=== PATIENT | male | born 1945 | race Caucasian/White ===

== ENCOUNTER 2016-06-16 09:56 | Inpatient (IN) ==
[2016-06-16] MEDS ORDERED: Nitroglycerin 0.4 MG TAB.SUBL SL ONE (09:59)
[2016-06-16] MEDS ORDERED: Aspirin 81 MG TAB.CHEW PO ONE (09:59)
--- NOTE | 2016-06-16 10:10 | Emergency Department Note ---
Disposition Clinical Impression: Chest pain Qualifiers: Chest pain type: unspecified Qualified Code(s): R07.9 - Chest pain, unspecified LLL pneumonia Qualifiers: Pneumonia type: due to unspecified organism Qualified Code(s): J18.9 - Pneumonia, unspecified organism Disposition: Admitted As Inpatient Condition: Fair Time of Disposition: 11:55 Chest Pain HPI - General Chief Complaint: ED Chest Pain Stated Complaint: CP Source: patient Mode of arrival: ambulatory Limitations: no limitations Vital Signs Reviewed: Yes Nursing Notes Reviewed: Yes - History of Present Illness HPI Narrative: Patient is a 71-year-old male who presents to [facility] ED with a chief complaint of chest pressure. States his symptoms started 3 days ago and have been constant until approximately half an [facility]. States his pressure was relieved after approximately 5 minutes from the second dose of nitroglycerin He now rates it at a 1/10. Denies any nausea, vomiting, fever or chills. Patient does state he has had a cough with clear sputum for about the last month. Patient had issues with difficulty breathing a few weeks ago and they diagnosed with bronchitis and placed him on antibiotics. States the difference this time as the chest pressure. Past medical history significant for quadruple bypass surgery done 6 years ago at the [facility]. States he does follow with a OR physician but they just listened to his heart. States the last time he had any cardiac testing done was approximately 2 years ago when he had a knee surgery. Pt complaint: chest pain Onset (ago): day(s) Duration: constant Onset: during rest, during exertion Pain Location: substernal Severity: moderate Severity scale (1-10): 1 Quality: tightness, heaviness Pain Radiation: none Improves with: nitroglycerin Worsens with: nothing Context: recent illness Associated symptoms: Denies: nausea, vomiting, dyspnea Treatments prior to arrival chest pain: aspirin, nitroglycerin (x2) - Related Data Allergies Allergy/AdvReac Type Severity Reaction Status Date / Time atorvastatin [From Lipitor] Allergy Flushing Verified 06/16/16 10:30 bupropion Allergy Blurry Verified 06/16/16 10:30 Vision diphenhydramine Allergy Difficulty Verified 06/16/16 10:30 [From Benadryl] Breathing nifedipine Allergy Hives Verified 01/02/17 10:30 protamine Allergy Difficulty Verified 06/16/16 10:30 Breathing All systems ED: reviewed and negative except as stated. Chest Pain PMH - Social History Smoking Status: Current every day smoker Physical Exam - General Limitations: no limitations General appearance: alert, in no apparent distress - Head Head exam: atraumatic, normocephalic, normal inspection - Eye Eye exam: Present: normal appearance, PERRL, EOMI - ENT ENT exam: normal exam, normal oropharynx, mucous membranes moist - Neck Neck exam: Present: normal inspection, full ROM, trachea midline - Chest Chest inspection: Present: normal inspection, symmetric chest wall rise - Respiratory Respiratory exam: Present: wheezes (expiratory wheeze) - Cardiovascular Cardiovascular exam: Present: regular rate, normal rhythm, normal heart sounds - Abdominal Exam Abdominal exam: Present: soft, Non-Tender. Absent: tenderness, distention, guarding, rebound, rigidity - Extremities Exam Extremities exam: Present: normal inspection, full ROM, pedal edema (1+). Absent: tenderness - Back Exam Back exam: Present: normal inspection, full ROM. Absent: tenderness - Neurological Exam Neurological exam: Present: alert, oriented X3 - Psychiatric Psychiatric exam: Present: normal affect, normal mood - Skin Skin exam: Present: warm, dry, intact, normal color Course Course Narrative: Patient seen and examined. Chest pressure with history of quadruple bypass. No recent cardiac testing done. Cardiopulmonary workup initiated. trop at the OR was 0.02. We will give him another nitroglycerin if patient's chest pain returns. So far he has had 2 sublingual nitroglycerin as well as 1 full dose aspirin given at the OR. Will likely admit to hospitalist for r/o ACS - Reevaluation(s) Reevaluation #1: Lab work appears unremarkable. Troponin 0.03. Chest x-ray shows left lower lobe pneumonia. Will admit for chest pain, rule out ACS, left lower lobe pneumonia. We will go ahead and treat with one dose of IV Levaquin. Spoke with hospitalist Dr. Tristan who has accepted patient for admission. Time: 11:30 Vital Signs Temperature 98.0 F 06/16/16 09:59 Pulse Rate 78 06/16/16 09:59 Respiratory Rate 24 06/16/16 09:59 Blood Pressure 156/90 06/16/16 09:59 O2 Sat by Pulse Oximetry 98 06/16/16 09:59 Temperature 98.0 F 06/16/16 09:59 Pulse Rate 60 06/16/16 11:17 Respiratory Rate 22 06/16/16 11:17 Blood Pressure 143/75 06/16/16 11:17 O2 Sat by Pulse Oximetry 97 06/16/16 11:17 Oxygen Delivery Oxygen Delivery Room Air Chest Pain - Medical Records Medical records reviewed: Yes I reviewed the patient's medical records. - Lab Data Lab results reviewed: Yes I reviewed the patient's lab results. Result diagrams: 06/16/16 10:29 06/16/16 10:29 Lab Results 06/16/16 06/16/16 06/16/16 Range/Units 10:29 10:29 10:29 WBC 8.1 (4.3-11.1) K/mcL RBC 3.86 L (4.19-5.50) M/mcL Hgb 10.6 L (12.9-16.9) g/dL Hct 32.9 L (37.5-50.1) % MCV 85.2 (83.0-100.0) fL MCH 27.5 L (28.0-33.3) pg MCHC 32.2 (31.6-35.5) g/dL RDW 13.5 (11.5-14.5) % Plt Count 248 (140-400) K/mcL MPV 9.4 (9.4-12.4) fL Immature Gran % 0.5 (0-4) % Seg Neutrophils % 62.3 % Lymphocytes % 26.7 % Monocytes % 8.3 % Eosinophils % 1.7 % Basophils % 0.5 % Neutrophils # 5.0 (1.6-8.9) K/mcL Lymphocytes # 2.2 (0.6-4.6) K/mcL Monocytes # 0.7 (0.0-1.3) K/mcL Eosinophils # 0.1 (0.0-0.6) K/mcL Basophils # 0.0 (0.0-0.2) K/mcL Immature Plt Fraction 2.7 (1.1-6.1) % PT 11.6 (9.4-12.1) Seconds INR 1.1 APTT 29.5 (26.0-36.0) Seconds Sodium (136-145) mEq/L Potassium (3.5-4.5) mEq/L Chloride (98-109) mEq/L Carbon Dioxide (19-29) mEq/L BUN (8-26) mg/dL Creatinine (0.72-1.25) mg/dL Est GFR ( Amer) (> 60) Est GFR (Non-Af Amer) (> 60) BUN/Creatinine Ratio (6-26) Glucose (70-99) mg/dL Calculated Osmolality (280-300) Calcium (8.6-10.8) mg/dL Troponin I (0-0.03) ng/mL B-Natriuretic Peptide 316 H (0-100) pg/mL 06/16/16 06/16/16 Range/Units 10:29 10:29 WBC (4.3-11.1) K/mcL RBC (4.19-5.50) M/mcL Hgb (12.9-16.9) g/dL Hct (37.5-50.1) % MCV (83.0-100.0) fL MCH (28.0-33.3) pg MCHC (31.6-35.5) g/dL RDW (11.5-14.5) % Plt Count (140-400) K/mcL MPV (9.4-12.4) fL Immature Gran % (0-4) % Seg Neutrophils % % Lymphocytes % % Monocytes % % Eosinophils % % Basophils % % Neutrophils # (1.6-8.9) K/mcL Lymphocytes # (0.6-4.6) K/mcL Monocytes # (0.0-1.3) K/mcL Eosinophils # (0.0-0.6) K/mcL Basophils # (0.0-0.2) K/mcL Immature Plt Fraction (1.1-6.1) % PT (9.4-12.1) Seconds INR APTT (26.0-36.0) Seconds Sodium 139 (136-145) mEq/L Potassium 3.8 (3.5-4.5) mEq/L Chloride 109 (98-109) mEq/L Carbon Dioxide 22 (19-29) mEq/L BUN 26 (8-26) mg/dL Creatinine 1.36 H (0.72-1.25) mg/dL Est GFR ( Amer) > 60 (> 60) Est GFR (Non-Af Amer) 52 L (> 60) BUN/Creatinine Ratio 19 (6-26) Glucose 154 H (70-99) mg/dL Calculated Osmolality 296 (280-300) Calcium 8.6 (8.6-10.8) mg/dL Troponin I 0.03 (0-0.03) ng/mL B-Natriuretic Peptide (0-100) pg/mL - Radiology Data Radiology results reviewed: Yes I reviewed the patient's radiology results. - EKG Data EKG attestation: Yes I reviewed and interpreted this EKG. EKG results narrative: EKG done at 959 shows normal sinus rhythm with a rate of [address] elevation. There is some ST depression noted in V5 and V6 and lead II. P mitrale noted. Heart Score - Score History: Moderately Suspicious EKG: Non Specific repolarisation Disturbance Age: Greater than 65 Risk Factors: Equal/Greater than 3 risk factor or history of atherosclerotic disease Troponin: Less than normal limit HEART Score Total: 6 Critical Care Time Critical Care Time: Yes Total Critical Care Time: 35 Attestation: cc time managing chest pain and pneumonia. Attestation Statement - Attestation Attestation: Patient was seen with resident physician. I reviewed the history, physical, assessment and plan, and agree with the findings. I also personally evaluated this patient and had [id number] time with this patient. 71-year-old male who presents to the emergency department with chief complaint of chest pressure for the last 3 days. He says similar to his heart attack pain. He has a bypass surgery from 2010, most recently was worked up approximately 2 years ago. He stated he went to the OR earlier today his pain was improved with 2 nitros and a transfer him to [facility] for additional evaluation and treatment. Currently he rates his chest pain about 1 out of 10. He has had an aspirin several nitros. On exam HEENT is normal, heart and lungs are normal, abdomen is soft and nontender. Extremities no significant abnormalities. A workup for chest pain including a BMP and an additional troponin. His first with the OR was negative. EKG shows no acute changes at this time. We will admit patient for formal rule out and additional cardiac testing, as well as treatment for his pneumonia. Agree with resident physician assessment and plan.
[2016-06-16 10:36] LABS: Basophils % 0.5 %; Eosinophils # 0.1 K/mcL (0.0-0.6); Eosinophils % 1.7 %; Hematocrit 32.9 % (37.5-50.1); Hemoglobin 10.6 g/dL (12.9-16.9); Immature Granulocytes % 0.5 % (0-4); Immature Platelets 2.7 % (1.1-6.1); Lymphocytes # 2.2 K/mcL (0.6-4.6); Lymphocytes % 26.7 %; Mean Corpuscular HGB Conc 32.2 g/dL (31.6-35.5); Mean Corpuscular Hemoglobin 27.5 pg (28.0-33.3); Mean Corpuscular Volume 85.2 fL (83.0-100.0); Mean Platelet Volume 9.4 fL (9.4-12.4); Monocytes # 0.7 K/mcL (0.0-1.3); Monocytes % 8.3 %; Platelet Count 248 K/mcL (140-400); Red Blood Count 3.86 M/mcL (4.19-5.50); Red Cell Distribution Width 13.5 % (11.5-14.5); Segmented Neutrophils % 62.3 %
[2016-06-16 10:40] LABS: INR 1.1; Prothrombin Time 11.6 Seconds (9.4-12.1)
[2016-06-16 10:43] LABS: Activated Partial Thrombo Time 29.5 Seconds (26.0-36.0)
[2016-06-16 10:49] LABS: BUN/Creatinine Ratio 19 (6-26); Blood Urea Nitrogen 26 mg/dL (8-26); Calcium 8.6 mg/dL (8.6-10.8); Carbon Dioxide 22 mEq/L (19-29); Chloride 109 mEq/L (98-109); Glucose 154 mg/dL (70-99); Osmolality,Calculated 296 (280-300); Potassium 3.8 mEq/L (3.5-4.5); Sodium 139 mEq/L (136-145); eGFR For African Americans > 60 (> 60); eGFR For Non-African Americans 52 (> 60)
[2016-06-16] MEDS ORDERED: Levofloxacin 750 MG/150 ML 750 MG/150 ML BAG IVPB ONE (10:54)
--- NOTE | 2016-06-16 13:02 | Internal Med History&Physical ---
<Robyn Sahni - Last Filed: 06/16/16 14:25> Date of Encounter: 06/16/16 Time of Encounter: 12:30 Assessment and Plan (1) Chest pain Current visit: Yes Status: Acute - Most likely secondary pneumonia given it's constant and aggravated by cough. - Doubt LA given first troponin negative and no significant ischemic change on EKG. Continue to trend troponin q6H x2. - Other Ddx include esophageal spasm and Shingles but less likely. - Given patient's significant CAD history and multiple cardiac risk factors including DM, HTN & HLD, will obtain echocardiogram to rule out cardiac causes. - Telemetry monitoring. - Continue aspirin, beta martin, DELROY-I, statin, nitroglycerin prn. - Continue to monitor. Qualifiers: Chest pain type: unspecified Qualified Code(s): R07.9 - Chest pain, unspecified (2) LLL pneumonia Current visit: Yes Status: Acute - CXR suggests possible left lower lobe pneumonia, most likely community acquired pneumonia. - Will check respiratory infection panel, urine antigens for Legionella & Strept. pneumoniae. - Continue Levaquin. - Continue to monitor. Qualifiers: Pneumonia type: due to unspecified organism Qualified Code(s): J18.9 - Pneumonia, unspecified organism (3) CAD (coronary artery disease) Current visit: Yes Status: Chronic - CAD status post CABG 6 years ago at [facility]. - Continue aspirin, beta martin, DELROY-I, statin. Qualifiers: Coronary Disease-Associated Artery/Lesion type: [place] artery [place] vs. transplanted heart: [place] heart Associated angina: angina presence unspecified Qualified Code(s): I25.10 - Atherosclerotic heart disease of [place] coronary artery without angina pectoris (4) Diabetes mellitus Current visit: Yes Status: Chronic - Basal insulin basal and sliding scale. Qualifiers: Diabetes mellitus type: type 2 Diabetes mellitus complication status: without complication Diabetes mellitus prison insulin use: with long term care pharmacist use Qualified Code(s): E11.9 - Type 2 diabetes mellitus without complications ; Z79.4 - long term care pharmacist (current) use of insulin (5) Hypertension Current visit: Yes Status: Chronic - Continue home regimen of antihypertensive medications. Qualifiers: Hypertension type: essential hypertension Qualified Code(s): I10 - Essential (primary) hypertension (6) DVT prophylaxis Current visit: Yes Status: Acute - SQ heparin. Internal Medicine - H&P: HPI Chief complaint: Chest pain Admitted From: Emergency Dept (From [place]) Plans for Post Hospital Care: Home History of present illness: Mr. Pereyra is a 71 year old male with DM, HTN, HLD and CAD s/p CABG 6 years ago at [facility]. [place] here for chest pain. Patient reports having cold 4 weeks ago and not getting better despite patient got 10-day course of antibiotic. Patient has productive cough with white sputum but states his shortness of breath is chronic and no significant change. Patient started to have constant tightness across the chest since yesterday morning. Per patient, the pain is different from the heart attack in the past. It's aggravated by cough and alleviated by nitroglycerin given in ED. Exercise doesn't seem to make the pain worse. Patient denies fever, chills, nausea, vomiting, skin rash/itchiness, peripheral edema, significant weight change. Patient still smokes 2 cigarettes per day. Patient is not on any home oxygen or breathing treatment at home. Patient denies hospitalization or infusion in past three months. Past Med Surg Social Fam HX - Past Medical History Medical history: coronary artery disease, diabetes, hyperlipidemia, hypertension Psychiatric history: no psych history - Past Surgical History Surgical History: coronary bypass (CABG), vascular surgery (Left lower extremity ) - Social History Smoking Status: Current every day smoker (for more than 50 years) Smokeless Tobacco Status: No Alcohol use: none Drug use: none Internal Medicine - H&P: Meds Amlodipine Besylate 10 mg PO DAILY 06/16/16 [History] Aspirin 325 mg PO DAILY 06/16/16 [History] Benzocaine/Menthol [Sore Throat Lozenges] 1 each PO TID PRN 06/16/16 [History] CefTRIAXone [Rocephin] 1 gm IM AD PRN 06/16/16 [History] Cetirizine HCl [All Day Allergy] 10 mg PO DAILY 06/16/16 [History] Cholecalciferol (Vitamin D3) [Vitamin D3] 1,000 unit PO DAILY 06/16/16 [History] Dextrose [Glucose] 1 each PO DAILY PRN 06/16/16 [History] Doxycycline Monohydrate [Mondoxyne Nl] 100 mg PO BID 06/16/16 [History] Hydrochlorothiazide [Hydrochlorothiazide] 50 mg PO DAILY 06/16/16 [History] Insulin Aspart Prot/Insuln Asp [Novolog Mix 70-30 Vial] 36 unit SQ BID 06/16/16 [History] Lidocaine 1% [Xylocaine] 2 ml IM ONCE PRN 06/16/16 [History] Lisinopril [Lisinopril] 40 mg PO DAILY 06/16/16 [History] Metformin HCl [Metformin HCl] 500 mg PO BID 06/16/16 [History] Methylphenidate HCl [Methylphenidate ER] 18 mg PO DAILY 06/16/16 [History] Metoprolol [Lopressor] 100 mg PO BID 06/16/16 [History] Mupirocin [Bactroban Oint] 1 appl TP TID 06/16/16 [History] Nitroglycerin [Nitrostat] 0.4 mg SL Q5M PRN 06/16/16 [History] Pantoprazole Sodium [Protonix] 20 mg PO DAILY 06/16/16 [History] Propylene Glycol/Peg 400/Pf [Systane 0.3-0.4% Eye Drops] 1 drop BOTH EYES TID [History] Rosuvastatin Calcium [Rosuvastatin Calcium] 20 mg PO DAILY 06/16/16 [History] Allergies atorvastatin [From Lipitor] Allergy (Verified 06/16/16 13:54) Flushing bupropion Allergy (Verified 06/16/16 13:54) Blurry Vision diphenhydramine [From Benadryl] Allergy (Verified 06/16/16 13:54) Difficulty Breathing nifedipine Allergy (Verified 06/16/16 13:54) Hives protamine Allergy (Verified 06/16/16 13:54) Difficulty Breathing All Systems PM: A 10-system review of systems was performed and is negative for pertinent findings except as documented above in the HPI. - Constitutional Constitutional: no anorexia, no chills, no fever(s), no weight gain, no weight loss - EENT Eyes: no change in vision Ears: no decreased hearing Nose, mouth and throat: no dysphagia - Cardiovascular Cardiovascular ROS IM: as per HPI, chest pain, no edema, no palpitations, no syncope - Respiratory Respiratory: cough, dyspnea (Chronic), excessive phlegm production, change in phlegm color (White sputum) - Gastrointestinal Gastrointestinal: no abdominal pain, no diarrhea, no hematochezia, no melena, no nausea, no vomiting - Genitourinary Genitourinary ROS male: no difficulty urinating, no dysuria, no hematuria - Musculoskeletal Musculoskeletal ROS IM: no arthralgias, no myalgias - Integumentary Integumentary IM: no pruritus, no rash - Neurological Neurological ROS: no focal weakness, no numbness, no tingling - Hematologic/Lymphatic Hematologic/Lymphatic: no easy bleeding, no easy bruising - Constitutional Vitals: Temp Pulse Resp BP Pulse Ox 97.6 F 62 16 139/74 97 06/16/16 12:29 06/16/16 12:29 06/16/16 12:29 06/16/16 12:29 06/16/16 12:29 General appearance: Present: cooperative, A&O X 3, no acute distress, answers questions appropriately - Head Head exam: Present: atraumatic, normocephalic - Eye Eye exam: Present: PERRL, conjuntiva pink, sclera anicteric - Neck Neck exam general surgery: Present: supple, trachea midline. Absent: lymphadenopathy - Respiratory Respiratory exam: Present: rales (Bibasilar, R > L). Absent: accessory muscle use, chest wall tenderness, rhonchi, wheezes - Cardiovascular Cardiovascular exam: Present: RRR, +S1, +S2. Absent: diastolic murmur, gallop, rubs, systolic murmur - GI/Abdominal GI/Abdominal exam: Present: normal bowel sounds, soft, no peritoneal signs. Absent: distended, tenderness - Extremities Exam Extremities exam: Present: warm, radial pulses palpable and symetrical. Absent : calf tenderness, cyanotic, pedal edema - Neurological Exam Neurological exam: Present: CN II-XII intact, oriented X3, no focal deficits. Absent: pronater drift, facial droop, speech deficit - Skin Skin exam: Present: dry, intact, warm Internal Med - H&P Results - Labs CBC & Chem 7: 06/16/16 10:29 06/16/16 10:29 <Dar Tristan - Last Filed: 06/16/16 15:14> Date of Encounter: 06/16/16 Internal Medicine - H&P: HPI History of present illness: Mr. Pereyra is a 71 year old male Past Med Surg Social Fam HX - Family History Mother Hx Family Endocrine Disorder: Yes (DM) All Systems PM: A 10-system review of systems was performed and is negative for pertinent findings except as documented above in the HPI. - Constitutional Vitals: Temp Pulse Resp BP Pulse Ox 97.6 F 62 16 139/74 97 06/16/16 12:29 06/16/16 12:29 06/16/16 12:29 06/16/16 12:29 06/16/16 12:29 Internal Med - H&P Results - Labs CBC & Chem 7: 06/16/16 10:29 06/16/16 10:29 - Attending Attestation I have seen and examined this patient independently. I have discussed the case with the resident, Dr. Sunita Sahni. I agree with the data gathering in the HPI, physical examination findings, assessment and plan as documented by the resident. Briefly, chest pain in the setting of CAP in a patient with history of CAD. monitor trops and continue antibiotics. D/W patient.
[2016-06-16] MEDS ORDERED: Acetaminophen 325 MG TABLET PO PRN (13:35)
[2016-06-16] MEDS ORDERED: Nitroglycerin 0.4 MG TAB.SUBL SL PRN (14:14)
[2016-06-16] MEDS ORDERED: *HR* Dextrose 50 % in Water (Syg) 50 ML SYRINGE IVP PRN (14:26)
[2016-06-16] MEDS ORDERED: D5% in Water 1,000 ML IV PRN (14:26)
[2016-06-16] MEDS ORDERED: Dextrose Gel 15 GM PO PRN ×2 (14:26)
[2016-06-16] MEDS: Insulin LISPRO 300 UNITS/3 ML VIAL SQ SCH (18:09)
[2016-06-16] MEDS: *HR* Heparin 5,000 UNIT/ML VIAL SQ SCH ×2 (18:09→23:55)
[2016-06-16] MEDS: Insulin NPH/REG 70/30 100 UNIT/ML (x5UNIT) SQ SCH (20:53)
[2016-06-16] MEDS: Metoprolol 100 MG TABLET PO SCH (20:53)
[2016-06-16] MEDS ORDERED: Insulin LISPRO 300 UNITS/3 ML VIAL SQ SCH (21:00)
[2016-06-16 22:29] LABS: Adenovirus Not Detected (Not Detect); Bordetella Pertussis Not Detected (Not Detect); Chlamydophila pneumoniae Not Detected (Not Detect); Coronavirus 229E Not Detected (Not Detect); Coronavirus HKU1 Not Detected (Not Detect); Coronavirus NL63 Not Detected (Not Detect); Coronavirus OC43 Not Detected (Not Detect); Human Metapneumovirus Not Detected (Not Detect); Human Rhinovirus/Enterovirus Not Detected (Not Detect); Influenza A Subtype 2009 H1 Not Detected (Not Detect); Influenza A Untypeable Not Detected (Not Detect); Influenza B Not Detected (Not Detect); Mycoplasma pneumoniae Not Detected (Not Detect); Parainfluenza Virus 1 Not Detected (Not Detect); Parainfluenza Virus 2 Not Detected (Not Detect); Parainfluenza Virus 3 Not Detected (Not Detect); Parainfluenza Virus 4 Not Detected (Not Detect); Respiratory Syncytial Virus Not Detected (Not Detect)
[2016-06-17 05:02] LABS: Basophils # 0.1 K/mcL (0.0-0.2); Basophils % 0.7 %; Eosinophils # 0.3 K/mcL (0.0-0.6); Eosinophils % 3.6 %; Hematocrit 32.1 % (37.5-50.1); Hemoglobin 10.4 g/dL (12.9-16.9); Immature Granulocytes % 0.4 % (0-4); Lymphocytes # 2.4 K/mcL (0.6-4.6); Lymphocytes % 33.7 %; Mean Corpuscular HGB Conc 32.4 g/dL (31.6-35.5); Mean Corpuscular Hemoglobin 27.3 pg (28.0-33.3); Mean Corpuscular Volume 84.3 fL (83.0-100.0); Mean Platelet Volume 9.7 fL (9.4-12.4); Monocytes # 0.8 K/mcL (0.0-1.3); Monocytes % 10.7 %; Neutrophils # 3.6 K/mcL (1.6-8.9); Platelet Count 234 K/mcL (140-400); Red Blood Count 3.81 M/mcL (4.19-5.50); Red Cell Distribution Width 13.5 % (11.5-14.5); Segmented Neutrophils % 50.9 %
[2016-06-17 05:21] LABS: BUN/Creatinine Ratio 19 (6-26); Blood Urea Nitrogen 26 mg/dL (8-26); Calcium 8.9 mg/dL (8.6-10.8); Carbon Dioxide 22 mEq/L (19-29); Chloride 110 mEq/L (98-109); Glucose 54 mg/dL (70-99); Osmolality,Calculated 292 (280-300); Potassium 3.7 mEq/L (3.5-4.5); Sodium 140 mEq/L (136-145); eGFR For African Americans > 60 (> 60); eGFR For Non-African Americans 52 (> 60)
[2016-06-17 08:19] VITALS: BP 169/79
--- NOTE | 2016-06-17 08:19 | ECHO - Doppler Report ---
Echocardiogram Name: Delgado Pereyra Date of Study: 06/16/2016 Date: 1945 Ht: 69.0 in Medical Record#: [id number] Age: 71 Wt: 206.0 lb Gender: Male BSA: 2.09 Order #: [id number] Location: [facility] Room #: 3B24 Reading Physician: Kranthi Munroe MD, [facility] Corporate Concierge: Yesenia Brenner Ordering Physician: Robyn Sahni DO Primary Physician: [facility] Indications: Chest pain, Coronary artery disease, S/p CABG Impressions: Normal left ventricular size and systolic function, LVEF 60-65%. There is atypical septal motion consistent with prior cardiac surgery. Mild concentric left ventricular hypertrophy. Moderate left ventricular diastolic dysfunction. Normal right ventricular size and function. Severely dilated left atrium. Moderately dilated right atrium. Mild tricuspid regurgitation. Moderate pulmonary hypertension. Estimated RVSP = 50 mmHg. Left Ventricular Wall Motion: Rest Echo Findings All wall segments showed normal motion. Findings: Study Quality * Suboptimal echo windows. ECG Findings * Normal sinus rhythm. Left Ventricle * Normal left ventricular size and systolic function, LVEF 60-65%. There is atypical septal motion consistent with prior cardiac surgery. * Mild concentric left ventricular hypertrophy. * Moderate left ventricular diastolic dysfunction. Right Ventricle * Normal right ventricular size and function. Left Atrium * Severely dilated left atrium. Right Atrium * Moderately dilated right atrium. Aorta * Normally sized aortic root. Pericardium * There is no pericardial effusion present. IVC * Normal IVC dimensions and inspiratory collapse. Aortic Valve * Trileaflet aortic valve. * Moderately sclerotic aortic valve leaflets. * No aortic stenosis. * No aortic regurgitation. Mitral Valve * Moderate mitral annular calcification * No mitral stenosis. * Trace mitral regurgitation. Tricuspid Valve * Normal tricuspid valve structure. * No tricuspid stenosis. * Mild tricuspid regurgitation. * Moderate pulmonary hypertension. Estimated RVSP = 50 mmHg. Pulmonic Valve * Pulmonic valve not well visualized. * No pulmonic stenosis. * No pulmonic regurgitation. History Hypertension Diabetes Hypercholesteremia History of CAD/PTCA Myocardial Infarction Coronary Artery Bypass Graft Measurements: BP: 138/ 75 2D Normal Values RVIDd: 3.50 cm IVSd: 1.20 cm 0.6 - 1.0 cm LVIDd: 5.60 cm 3.7 - 5.6 cm LVPWd: 1.30 cm 0.6 - 1.1 cm LVIDs: 3.40 cm 1.5 - 3.6 cm AO: 3.00 cm < 4.0 cm LA volume: 95 Mitral Valve Peak E:1.17 m/sec Peak A:1.18 m/sec E/A Ratio:1 Peak E' Lat Omar:6.24 cm/s Peak E' Med Omar:5.75 cm/s E/E' Lat Ratio:18.8 E/E' Med Ratio:20.3 Tricuspid Valve TV Regurg Peak Grad: 47.00mmHg TV Regurg Peak Omar: 3.40m/sec Updated by Kranthi Munroe MD, [facility] on 06/17/2016 8:13:47 AM electronically signed on 06/17/2016 8:14:56 AM with status of Final [place] Motion [place]: 1=Normal, 2=Hypokinesis, 3=Akinesis, 4=Dyskinesis, 5=Aneurysmal, 6=Hyperkinetic, X=Not Visualized (Blank)=Missing
[2016-06-17] MEDS: Insulin LISPRO 300 UNITS/3 ML VIAL SQ SCH (08:48)
[2016-06-17] MEDS: *HR* Heparin 5,000 UNIT/ML VIAL SQ SCH (08:49)
[2016-06-17] MEDS: Insulin NPH/REG 70/30 100 UNIT/ML (x5UNIT) SQ SCH (08:51)
[2016-06-17] MEDS: Metoprolol 100 MG TABLET PO SCH (08:51)
[2016-06-17] MEDS ORDERED: Aspirin 325 MG TABLET PO SCH (09:00)
[2016-06-17] MEDS ORDERED: Levofloxacin 750 MG/150 ML 750 MG/150 ML BAG IVPB SCH (09:00)
[2016-06-17] MEDS ORDERED: amLODIPine 5 MG TABLET PO SCH (09:00)
[2016-06-17] MEDS ORDERED: hydroCHLOROthiazide 25 MG TABLET PO SCH (09:00)
[2016-06-17] MEDS ORDERED: Lisinopril 20 MG TABLET PO SCH (09:00)
--- NOTE | 2016-06-17 09:57 | Electrocardiograph Report ---
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
--- NOTE | 2016-06-17 11:10 | Discharge Summary ---
<Kacie Acosta Suzi - Last Filed: 06/17/16 13:42> Date of Encounter: 06/17/16 Time of Encounter: 08:30 - Discharge Diagnosis (1) LLL pneumonia Priority: Primary Status: Acute Qualifiers: Pneumonia type: due to unspecified organism Qualified Code(s): J18.9 - Pneumonia, unspecified organism (2) Chest pain Priority: Secondary Status: Acute Qualifiers: Chest pain type: unspecified Qualified Code(s): R07.9 - Chest pain, unspecified (3) CAD (coronary artery disease) Priority: Secondary Status: Chronic Qualifiers: Coronary Disease-Associated Artery/Lesion type: [place] artery [place] vs. transplanted heart: [place] heart Associated angina: angina presence unspecified Qualified Code(s): I25.10 - Atherosclerotic heart disease of [place] coronary artery without angina pectoris (4) Diabetes mellitus Priority: Secondary Status: Chronic Qualifiers: Diabetes mellitus type: type 2 Diabetes mellitus complication status: without complication Diabetes mellitus termite technician insulin use: with mcfp use Qualified Code(s): E11.9 - Type 2 diabetes mellitus without complications ; Z79.4 - termite technician (current) use of insulin (5) Hypertension Priority: Secondary Status: Chronic Qualifiers: Hypertension type: essential hypertension Qualified Code(s): I10 - Essential (primary) hypertension - Discharge Medications Prescriptions: Benzonatate [Tessalon] 100 mg PO TID PRN #12 capsule PRN Reason: Cough Levofloxacin [Levaquin] 750 mg PO Q24H #5 tablet Home Medications: Amlodipine Besylate 10 mg PO DAILY 06/16/16 [History] Aspirin 325 mg PO DAILY 06/16/16 [History] Benzocaine/Menthol [Sore Throat Lozenges] 1 each PO TID PRN 06/16/16 [History] CefTRIAXone [Rocephin] 1 gm IM AD PRN 06/16/16 [History] Cetirizine HCl [All Day Allergy] 10 mg PO DAILY 06/16/16 [History] Cholecalciferol (Vitamin D3) [Vitamin D3] 1,000 unit PO DAILY 06/16/16 [History] Dextrose [Glucose] 1 each PO DAILY PRN 06/16/16 [History] Hydrochlorothiazide 50 mg PO DAILY 06/16/16 [History] Insulin Aspart Prot/Insuln Asp [Novolog Mix 70-30 Vial] 36 unit SQ BID 06/16/16 [History] Lidocaine 1% [Xylocaine] 2 ml IM ONCE PRN 06/16/16 [History] Lisinopril 40 mg PO DAILY 06/16/16 [History] Metformin HCl 500 mg PO BID 06/16/16 [History] Methylphenidate HCl [Methylphenidate ER] 18 mg PO DAILY 06/16/16 [History] Metoprolol [Lopressor] 100 mg PO BID 06/16/16 [History] Mupirocin [Bactroban Oint] 1 appl TP TID 06/16/16 [History] Nitroglycerin [Nitrostat] 0.4 mg SL Q5M PRN 06/16/16 [History] Pantoprazole Sodium [Protonix] 20 mg PO DAILY 06/16/16 [History] Propylene Glycol/Peg 400/Pf [Systane 0.3-0.4% Eye Drops] 1 drop BOTH EYES TID [History] Rosuvastatin Calcium 20 mg PO DAILY 06/16/16 [History] Benzonatate [Tessalon] 100 mg PO TID PRN #12 capsule 06/17/16 [Rx] Levofloxacin [Levaquin] 750 mg PO Q24H #5 tablet 06/17/16 [Rx] Allergies/Adverse Reactions: Allergies atorvastatin [From Lipitor] Allergy (Verified 06/16/16 13:54) Flushing bupropion Allergy (Verified 06/16/16 13:54) Blurry Vision diphenhydramine [From Benadryl] Allergy (Verified 06/16/16 13:54) Difficulty Breathing nifedipine Allergy (Verified 06/16/16 13:54) Hives protamine Allergy (Verified 06/16/16 13:54) Difficulty Breathing Procedures/tests Complete & Pending: Procedures Performed prior 72 hours Category Date Time Status EV echocardiogram Routine Y 06/16/16 13:57 Completed Date of admission: 06/16/16 11:27 [facility] care [facility]: [facility] - Patient Status Disposition: Home, Self-Care Condition: Good Functional capacity at discharge: independent ambulation Overall status at discharge: patient is progressing back to baseline - Discharge Instructions Instructions: Benzonatate (By mouth), Levofloxacin (By mouth), Chest Pain (DC) , Community-acquired Pneumonia (GEN) Follow Up With: Unassigned,Provider [Non-Partnered Physician] - Additional Instructions: Follow-up with PCP in one week. - Diet and Activity Activity: increase activity as tolerated Diet: diabetic diet Hospital course: Mr. Pereyra is a 71 year old male who presented with chest pain. He admitted to having could for 4 weeks prior to coming the [facility]. He reported that symptoms had not improved despite having a 10 day course of antibiotics. Upon arrival he had cough productive of white sputum and shortness of breath which he reports is chronic. Imaging demonstrated LLL infiltrate and pt subsequently received 2 doses of IV Levaquin. This morning he is feeling better, cough has improved although not completely resolved, and physical exam reveals clear lung sounds bilaterally. Pt denies any chest pain, worsening shortness of breath, fever, chills, nausea or vomiting. Will discharge with cough suppressant as well as po Levaquin. Follow-up with PCP in one week. - Time Spent with Patient Total time spent providing and/or coordinating discharge services: Less than 30 minutes - Constitutional Vitals: Temp Pulse Resp BP Pulse Ox 97.5 F L 65 16 169/79 96 06/17/16 08:18 06/17/16 08:18 06/17/16 08:18 06/17/16 08:18 06/17/16 08:18 General appearance: Present: cooperative, A&O X 3, no acute distress, answers questions appropriately - Head Head exam: Present: atraumatic, normocephalic - Eye Eye exam: Present: PERRL, conjuntiva pink, sclera anicteric - ENT ENT exam: Present: mucous membranes moist - Neck Neck exam general surgery: Present: supple, trachea midline - Respiratory Respiratory exam: Present: CTAB. Absent: rales, rhonchi, wheezes - Cardiovascular Cardiovascular exam: Present: RRR, +S1, +S2 - GI/Abdominal GI/Abdominal exam: Present: normal bowel sounds, soft. Absent: rebound, rigid, tenderness - Extremities Exam Extremities exam: Present: warm, radial pulses palpable and symetrical. Absent : cyanotic, pedal edema - Neurological Exam Neurological exam: Present: alert, CN II-XII intact, oriented X3, no focal deficits - Skin Skin exam: Present: dry, intact <Dar Tristan - Last Filed: 06/17/16 18:04> Date of Encounter: 06/17/16 Procedures/tests Complete & Pending: Procedures Performed prior 72 hours Category Date Time Status EV echocardiogram Routine Y 06/16/16 13:57 Completed Date of admission: 06/16/16 11:27 [facility] care physician: [facility] Consults: 06/17/16 11:13 Consult to Parachute Rigger [CONS] Routine Reason for SW Consult: [facility] Hospital course: Mr. Pereyra is a 71 year old male - Time Spent with Patient Total time spent providing and/or coordinating discharge services: - Constitutional Vitals: Temp Pulse Resp BP Pulse Ox 97.5 F L 65 16 169/79 96 06/17/16 08:18 06/17/16 08:18 06/17/16 08:18 06/17/16 08:18 06/17/16 08:18 - Attending Attestation The patient was seen and examined with the resident during rounds. I agree with the physical examination findings, assessment and plan as documented by the resident, Dr. Acosta. Patient with CAP and chest pain. Discharge home on po levaquin.
== END 2016-06-17 12:15 | disposition home or self-care (01) | DRG 195 ==
LOC: EDBD → EMEROO 09:56 → SUATTDRO 11:27 → 3BNU 11:27
PROVIDERS: ADMIT Internal Medicine; ATTEND Internal Medicine

== ENCOUNTER 2016-11-13 10:58 | Observation (INO) ==
--- NOTE | 2016-11-13 11:19 | Emergency Department Note ---
Disposition Clinical Impression: Pleural effusion, Elevated blood pressure reading, Anemia Chest pain Qualifiers: Chest pain type: unspecified Qualified Code(s): R07.9 - Chest pain, unspecified Pulmonary edema Qualifiers: Chronicity: acute Qualified Code(s): J81.0 - Acute pulmonary edema CHF (congestive heart failure) Qualifiers: Congestive heart failure type: unspecified congestive heart failure type Congestive heart failure chronicity: unspecified congestive heart failure chronicity Qualified Code(s): I50.9 - Heart failure, unspecified Disposition: Admitted As Inpatient Condition: Fair Chest Pain HPI - General Chief Complaint: ED Chest Pain Stated Complaint: CP x 3 days Time Seen by Provider: 11/13/16 11:01 Source: patient Mode of arrival: ambulatory Limitations: no limitations Vital Signs Reviewed: Yes Nursing Notes Reviewed: Yes - History of Present Illness HPI Narrative: 71-year-old male with a history of bypass or 8 years ago, COPD, hypertension hyperlipidemia, presents for evaluation of chest pain. Patient was seen initially in the cardiology office in was instructed to go to the ER for evaluation. Patient states he has had constant chest pain for the past 3 days. Noted be left-sided. No radiation. Does have a cough with white frothy sputum and shortness of breath. Current smoker. States he thought he had bronchitis. Patient states that he does use his albuterol inhaler which helps with the cough. Patient denies any nausea or vomiting. Denies any fevers. No aggravating or alleviating symptoms noted with the chest pain. Severity scale (1-10): 2 Pain Radiation: none Improves with: nothing Worsens with: nothing - Related Data Home Medications Medication Instructions Recorded Confirmed Amlodipine Besylate 10 mg PO DAILY 06/16/16 11/13/16 Aspirin 325 mg PO DAILY 06/16/16 11/13/16 Benzocaine/Menthol [Sore Throat 1 lozenge PO TID PRN 06/16/16 11/13/16 Lozenges] Cetirizine HCl [All Day Allergy] 10 mg PO DAILY 06/16/16 11/13/16 Cholecalciferol (Vitamin D3) 1,000 unit PO DAILY 06/16/16 11/13/16 [Vitamin D3] Dextrose [Glucose] 1 tab PO DAILY PRN 06/16/16 11/13/16 Insulin Aspart Prot/Insuln Asp 36 unit SQ BID 06/16/16 11/13/16 [Novolog Mix 70-30 Vial] Lisinopril 40 mg PO DAILY 06/16/16 11/13/16 Metformin HCl 500 mg PO BID 06/16/16 11/13/16 Mupirocin [Bactroban Oint] 1 appl TP TID 06/16/16 11/13/16 Nitroglycerin [Nitrostat] 0.4 mg SL Q5M PRN 06/16/16 11/13/16 Pantoprazole Sodium [Protonix] 20 mg PO DAILY 06/16/16 11/13/16 Propylene Glycol/Peg 400/Pf 1 drop BOTH EYES TID 06/16/16 11/13/16 [Systane 0.3-0.4% Eye Drops] Rosuvastatin Calcium 20 mg PO DAILY 06/16/16 11/13/16 Albuterol Sulfate [Proair Hfa] 2 puff IH Q6H PRN 11/13/16 11/13/16 Ipratropium/Albuterol Neb [Duoneb] 3 ml IH Q4HR PRN 11/13/16 11/13/16 Metoprolol Succinate 100 mg PO BID 11/13/16 11/13/16 Ropinirole HCl [Requip] 0.25 mg PO HS 11/13/16 11/13/16 Allergies Allergy/AdvReac Type Severity Reaction Status Date / Time atorvastatin [From Lipitor] Allergy Flushing Verified 06/16/16 13:54 bupropion Allergy Blurry Verified 06/16/16 13:54 Vision diphenhydramine Allergy Difficulty Verified 06/16/16 13:54 [From Benadryl] Breathing nifedipine Allergy Hives Verified 06/16/16 13:54 protamine Allergy Difficulty Verified 06/16/16 13:54 Breathing simvastatin Allergy Flushing Verified 11/13/16 11:08 All systems ED: reviewed and negative except as stated. Constitutional: Reports: as per HPI. Denies: fever Eyes: Reports: as per HPI ENT ED: Reports: as per HPI Cardiovascular: Reports: as per HPI, chest pain Respiratory: Reports: as per HPI, cough, dyspnea Gastrointestinal: Reports: as per HPI. Denies: nausea, vomiting Genitourinary: Reports: as per HPI Musculoskeletal: Reports: as per HPI Integumentary: Reports: as per HPI Neurological: Reports: as per HPI Psychiatric: Reports: as per HPI Endocrine: Reports: as per HPI Chest Pain PMH - Past Medical History Medical history: Reports: coronary artery disease, diabetes, hyperlipidemia, hypertension Surgical history: Reports: coronary bypass (CABG), vascular surgery (Left lower extremity) Psychiatric history: Reports: no psych history - Social History Smoking Status: Current every day smoker Alcohol use: Reports: none Drug use: Reports: none Physical Exam - General Limitations: no limitations General appearance: alert, in no apparent distress - Head Head exam: atraumatic, normocephalic, normal inspection - Eye Eye exam: Present: normal appearance, EOMI - ENT ENT exam: normal exam, mucous membranes moist - Neck Neck exam: Present: normal inspection, trachea midline - Chest Chest inspection: Present: normal inspection, symmetric chest wall rise, tenderness (Left-sided anterior chest wall) - Respiratory Respiratory exam: Present: normal lung sounds bilaterally, accessory muscle use , other (mild conversational dyspnea) - Cardiovascular Cardiovascular exam: Present: regular rate, normal rhythm. Absent: systolic murmur - Abdominal Exam Abdominal exam: Present: soft, Non-Tender - Extremities Exam Extremities exam: Present: normal inspection, pedal edema (trace) - Back Exam Back exam: Present: normal inspection. Absent: CVA tenderness (R), CVA tenderness (L) - Neurological Exam Neurological exam: Present: alert, oriented X3 - Skin Skin exam: Present: warm, dry, intact, normal color Course Course Narrative: Patient seen and examined. Patient appears to be in no acute distress. Patient will get a cardiopulmonary evaluation. Breathing treatment With bronchospasm. Nitroglycerin for chest pain. Disposition pending. Patient's history was reviewed. Patient had echo obtained in June this present year and had EF of 60-65%. - Reevaluation(s) Reevaluation #1: No change in the patients condition. Patient's chest x-ray reviewed shows new bilateral pleural opacities with likely effusion. Radiology interpretation of effusion versus multifocal pneumonia. Patient clinically does not appear infectious less likely versus multifocal pneumonia. Patient appears to have acute pulmonary edema. Time: 11:54 Reevaluation #2: Patient seen and examined. No acute distress. Updated on plan of care. Time: 13:05 Vital Signs Temperature 97.7 F 11/13/16 11:01 Pulse Rate 77 11/13/16 11:01 Respiratory Rate 20 11/13/16 11:01 Blood Pressure 187/85 11/13/16 11:01 O2 Sat by Pulse Oximetry 97 11/13/16 11:01 Temperature 97.7 F 11/13/16 13:46 Pulse Rate 72 11/13/16 13:46 Respiratory Rate 16 11/13/16 13:46 Blood Pressure 160/74 11/13/16 13:46 O2 Sat by Pulse Oximetry 96 11/13/16 13:46 Oxygen Delivery Oxygen Delivery Room Air Chest Pain - MDM Narrative Medical decision making narrative: 71-year-old male presents for evaluation of chest pain for the past 3 days. Patient had a cardiopulmonary evaluation which is significant for acute pulmonary edema. Patient's BNP also elevated consistent with heart failure. Patient had an echo performed beginning of the year which showed EF of 66 5%. Patient was treated with nitroglycerin as well as Lasix. Patient was also given a DuoNeb. Patient's troponin was negative with no acute changes in EKG. Patient will be admitted to the hospital service for further evaluation and monitoring. Patient will likely need a stress test and echo. Patient is agreeable to plan of care. Patient does appear to be anemic but is chronic. Patient was observed in the emergency department without any signs of distress. - Lab Data Lab results reviewed: Yes I reviewed the patient's lab results. Result diagrams: 11/13/16 11:44 11/13/16 11:44 Lab Results 11/13/16 11/13/16 11/13/16 Range/Units 11:44 11:44 11:44 WBC 7.3 (4.3-11.1) K/mcL RBC 3.87 L (4.19-5.50) M/mcL Hgb 10.1 L (12.9-16.9) g/dL Hct 31.5 L (37.5-50.1) % MCV 81.4 L (83.0-100.0) fL MCH 26.1 L (28.0-33.3) pg MCHC 32.1 (31.6-35.5) g/dL RDW 15.4 H (11.5-14.5) % Plt Count 253 (140-400) K/mcL MPV 8.7 L (9.4-12.4) fL Immature Gran % 0.3 (0-4) % Seg Neutrophils % 60.3 % Lymphocytes % 26.0 % Monocytes % 9.6 % Eosinophils % 3.4 % Basophils % 0.4 % Neutrophils # 4.4 (1.6-8.9) K/mcL Lymphocytes # 1.9 (0.6-4.6) K/mcL Monocytes # 0.7 (0.0-1.3) K/mcL Eosinophils # 0.3 (0.0-0.6) K/mcL Basophils # 0.0 (0.0-0.2) K/mcL Sodium 140 (136-145) mEq/L Potassium 3.6 (3.5-4.5) mEq/L Chloride 111 H (98-109) mEq/L Carbon Dioxide 23 (19-29) mEq/L BUN 18 (8-26) mg/dL Creatinine 1.24 (0.72-1.25) mg/dL Est GFR ( Amer) > 60 (> 60) Est GFR (Non-Af Amer) 57 L (> 60) BUN/Creatinine Ratio 15 (6-26) Glucose 57 L (70-99) mg/dL Calculated Osmolality 290 (280-300) Calcium 8.7 (8.6-10.8) mg/dL Troponin I (0-0.03) ng/mL B-Natriuretic Peptide 653 H (0-100) pg/mL 11/13/16 Range/Units 11:44 WBC (4.3-11.1) K/mcL RBC (4.19-5.50) M/mcL Hgb (12.9-16.9) g/dL Hct (37.5-50.1) % MCV (83.0-100.0) fL MCH (28.0-33.3) pg MCHC (31.6-35.5) g/dL RDW (11.5-14.5) % Plt Count (140-400) K/mcL MPV (9.4-12.4) fL Immature Gran % (0-4) % Seg Neutrophils % % Lymphocytes % % Monocytes % % Eosinophils % % Basophils % % Neutrophils # (1.6-8.9) K/mcL Lymphocytes # (0.6-4.6) K/mcL Monocytes # (0.0-1.3) K/mcL Eosinophils # (0.0-0.6) K/mcL Basophils # (0.0-0.2) K/mcL Sodium (136-145) mEq/L Potassium (3.5-4.5) mEq/L Chloride (98-109) mEq/L Carbon Dioxide (19-29) mEq/L BUN (8-26) mg/dL Creatinine (0.72-1.25) mg/dL Est GFR ( Amer) (> 60) Est GFR (Non-Af Amer) (> 60) BUN/Creatinine Ratio (6-26) Glucose (70-99) mg/dL Calculated Osmolality (280-300) Calcium (8.6-10.8) mg/dL Troponin I 0.03 (0-0.03) ng/mL B-Natriuretic Peptide (0-100) pg/mL - Radiology Data Radiology results reviewed: Yes I reviewed the patient's radiology results. Chest X-Ray 11/13/16 11:24 IMPRESSION: New symmetric bilateral diffuse pulmonary opacities and lung base consolidation with probable effusions. This may represent acute pulmonary edema with lung base atelectasis versus possible multifocal pneumonia. D/ / Oleg Francis MD / Oleg Francis MD Interpreting Provider: Oleg Francis MD - EKG Data EKG attestation: Yes I reviewed and interpreted this EKG. EKG shows normal: sinus rhythm Rate: normal Rhythm: NSR [place]/QRS: left axis deviation Voltage: c/w LVH P waves: LAE ST segment depression in: v5, v6 Q waves: v1, v2 Interpretation: no acute changes, unchanged when compared to prior tracing (date ) (06/2016), nonspecific ST-T wave changes Heart Score - Score History: Moderately Suspicious EKG: Non Specific repolarisation Disturbance Age: Greater than 65 Risk Factors: 1-2 risk factors Troponin: Less than normal limit HEART Score Total: 5 S.B.A.R. - S.B.A.R. Situation: Demographics Background: Presenting Complaint Assessment: Vital Signs, Course and respsone to treatment, Patient/Family Expectation Recommendation: Barrier(s) to disposition, Recommendation based on pending studies, treatments, or consults S.B.A.R. Report Given to: Jacqueline HurtadoAMaribel Repor Time: 13:00 Attestation Statement - Attestation Attestation: I examined this patient and my medical decision-making was reviewed with the REPRODUCTION TECHNICIAN/PA/Advanced Practice Nurse/Resident Physician. I agree with the documented findings, disposition and treatment plan as described except to the extent set forth below. 71-year-old male presents ED because of chest discomfort and dyspnea. He had four-vessel CABG 8 years ago at [facility]. He has done well since then but over the past month has had increasing dyspnea as well as substernal chest discomfort. He was seen in the office today by Dr. Miller and deferred to the emergency department. He complains of some orthopnea as well as increasing peripheral edema. He previously been on hydrocodone thiazide but states he stopped taking this due to GI upset. Denies fevers or chills. No diaphoresis. Very talkative male in no apparent distress but slightly tachypneic. Oropharynx clear. Neck is supple. Trachea midline no JVD is noted. Chest with diminished breath sounds at both bases. Cardiac exam regular, S3 gallop is noted. Chest wall is nontender. Abdomen soft nondistended nontender. Extremity is warm and dry with trace to 1+ edema bilaterally. Chest x-ray reveals bilateral pleural effusions as well as pulmonary edema but no significant increase in cardiomegaly. EKG without acute changes. Troponin is normal, BNP elevated. He is given IV Lasix along with oral aspirin. He will be admitted for diuresis and further evaluation of his chest discomfort.
[2016-11-13] MEDS ORDERED: Aspirin 81 MG TAB.CHEW PO ONE (11:24)
[2016-11-13] MEDS ORDERED: Ipratropium/Albuterol Neb 3 ML IH ONE (11:25)
[2016-11-13] MEDS ORDERED: Nitroglycerin 0.4 MG TAB.SUBL SL PRN (11:26)
[2016-11-13 11:50] LABS: Basophils % 0.4 %; Eosinophils # 0.3 K/mcL (0.0-0.6); Eosinophils % 3.4 %; Hematocrit 31.5 % (37.5-50.1); Hemoglobin 10.1 g/dL (12.9-16.9); Immature Granulocytes % 0.3 % (0-4); Lymphocytes # 1.9 K/mcL (0.6-4.6); Mean Corpuscular HGB Conc 32.1 g/dL (31.6-35.5); Mean Corpuscular Hemoglobin 26.1 pg (28.0-33.3); Mean Corpuscular Volume 81.4 fL (83.0-100.0); Mean Platelet Volume 8.7 fL (9.4-12.4); Monocytes # 0.7 K/mcL (0.0-1.3); Monocytes % 9.6 %; Neutrophils # 4.4 K/mcL (1.6-8.9); Platelet Count 253 K/mcL (140-400); Red Blood Count 3.87 M/mcL (4.19-5.50); Red Cell Distribution Width 15.4 % (11.5-14.5); Segmented Neutrophils % 60.3 %
[2016-11-13] MEDS ORDERED: Furosemide 40 MG/4 ML VIAL IVP ONE (12:00)
[2016-11-13 12:06] LABS: BUN/Creatinine Ratio 15 (6-26); Blood Urea Nitrogen 18 mg/dL (8-26); Calcium 8.7 mg/dL (8.6-10.8); Carbon Dioxide 23 mEq/L (19-29); Chloride 111 mEq/L (98-109); Glucose 57 mg/dL (70-99); Osmolality,Calculated 290 (280-300); Potassium 3.6 mEq/L (3.5-4.5); Sodium 140 mEq/L (136-145); eGFR For African Americans > 60 (> 60); eGFR For Non-African Americans 57 (> 60)
[2016-11-13] MEDS ORDERED: Naloxone 0.4 MG/ML INJ IVP PRN (14:42)
[2016-11-13] MEDS ORDERED: Acetaminophen 325 MG TABLET PO PRN (14:42)
[2016-11-13] MEDS ORDERED: Dextrose Gel 15 GM PO PRN ×2 (14:47)
[2016-11-13] MEDS ORDERED: D5% in Water 1,000 ML IVC PRN (14:47)
[2016-11-13] MEDS ORDERED: *HR* Dextrose 50 % in Water (Syg) 50 ML SYRINGE IVP PRN (14:47)
--- NOTE | 2016-11-13 15:21 | Internal Med History&Physical ---
Date of Encounter: 11/13/16 Time of Encounter: 15:17 Assessment and Plan (1) CHF (congestive heart failure) Current visit: Yes Status: Acute 1. Previous echo June of this year EF 6065% with moderate diastolic dysfunction. Patient has been experiencing increasing shortness of breath clear sputum production chest pain. X-ray indicative of congestion and pleural effusion no leukocytosis or fever-do not suspect symptoms related to infectious process patient did have JVD on examination. He was given Lasix nitroglycerin which did relieve his symptoms. We will continue with Lasix twice a day 2 monitor intake and output daily weights 3 fluid restrictions 4 low sodium diet 5 oxygen as needed Qualifiers: Congestive heart failure type: diastolic Congestive heart failure chronicity: unspecified congestive heart failure chronicity Qualified Code(s) : I50.30 - Unspecified diastolic (congestive) heart failure (2) Chest pain Current visit: No Status: Acute 1 suspect chest pains related to CHF exacerbation we will trend cardiac troponins 2 nitroglycerin as needed 3 continuous cardiac monitoring 4 Patient follow up as outpatient will consult cardiology as needed Qualifiers: Chest pain type: unspecified Qualified Code(s): R07.9 - Chest pain, unspecified (3) CAD (coronary artery disease) Current visit: No Status: Chronic 1 we will continue with aspirin and statin beta martin we will hold Samuel for now due to history of CAD and present diuresing patient Qualifiers: Coronary Disease-Associated Artery/Lesion type: [place] artery [place] vs. 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 use Qualified Code(s): E11.9 - Type 2 diabetes mellitus without complications ; Z79.4 - dedicated intermodal truck driver (current) use of insulin (5) Hypertension Current visit: No Status: Chronic 1 we will hold lisinopril for now we will continue diuresis patient will monitor creatinine closely continue with beta martin 2 low sodium diet Qualifiers: Hypertension type: essential hypertension Qualified Code(s): I10 - Essential (primary) hypertension (6) CKD (chronic kidney disease) stage 3, GFR 30-59 ml/min Current visit: No Status: Chronic 1 appears patient's creatinine is at baseline we will continue to monitor-we will be diuresing patient will monitor creatinine closely 2 avoid nephrotoxins we will hold lisinopril and metformin for now 3 monitor intake and output daily weights (7) DVT prophylaxis Current visit: No Status: Acute 1 heparin subcutaneous Internal Medicine - H&P: HPI Chief complaint: CP Admitted From: Emergency Dept Plans for Post Hospital Care: Home History of present illness: Mr. Pereyra is a 71 year old male past medical history of GERD diabetes hypertension hyperlipidemia C [facility] history CABG 48 years ago at [facility]. Patient states in past 3 days he has had increasing shortness of breath on exertion as well as midsternal chest pain which she describes as constant non radiating it is worse when he coughs and is relieved with rest. He denies any arm or jaw pain dizziness or palpitation lightheadedness lower extremity swelling. He denies any weight gain or weight loss The patient states he had a admission around August when he was diagnosed with bronchitis and since that time he has been experiencing a cough as well as a feeling of being for fluid. He normally goes to the [facility] however he was referred to cardiology. He presented to her office today with the above complaints. She advised him to go to the ER for further workup and evaluation. According to ER records patient continued to have chest pain upon presentation lab work was obtained BNP was 653 troponin was 0 no leukocytosis. Chest x-ray with some probable pleural effusion, pulmonary edema versus pneumonia. EKG showed no ST-T wave abnormalities Patient was given Lasix nitroglycerin aspirin which his chest pain did improve. He presented for further workup and evaluation. Presently patient denies any chest pains with of breath is not appear to be in any respiratory distress. His lung sounds have some faint expiratory wheezes heart sounds S1-S2 with no rubs, gallops or murmurs noted I did note some slight JVD. No pedal edema noted he is hemodynamically stable this time I reviewed this case with who agrees with plan. Past Med Surg Social Fam HX - Past Medical History Medical history: coronary artery disease, diabetes, hyperlipidemia, hypertension Psychiatric history: no psych history - Past Surgical History Surgical History: coronary bypass (CABG), vascular surgery (Left lower extremity ) - Social History Smoking Status: Current every day smoker Smokeless Tobacco Status: No Alcohol use: none Drug use: none - Family History Mother Hx Family Endocrine Disorder: Yes (DM) Internal Medicine - H&P: Meds Amlodipine Besylate 10 mg PO DAILY 06/16/16 [History] Aspirin 325 mg PO DAILY 06/16/16 [History] Benzocaine/Menthol [Sore Throat Lozenges] 1 lozenge PO TID PRN 06/16/16 [History ] Cetirizine HCl [All Day Allergy] 10 mg PO DAILY 06/16/16 [History] Cholecalciferol (Vitamin D3) [Vitamin D3] 1,000 unit PO DAILY 06/16/16 [History] Dextrose [Glucose] 1 tab PO DAILY PRN 06/16/16 [History] Insulin Aspart Prot/Insuln Asp [Novolog Mix 70-30 Vial] 36 unit SQ BID 06/16/16 [History] Lisinopril 40 mg PO DAILY 06/16/16 [History] Metformin HCl 500 mg PO BID 06/16/16 [History] Mupirocin [Bactroban Oint] 1 appl TP TID 06/16/16 [History] Nitroglycerin [Nitrostat] 0.4 mg SL Q5M PRN 06/16/16 [History] Pantoprazole Sodium [Protonix] 20 mg PO DAILY 06/16/16 [History] Propylene Glycol/Peg 400/Pf [Systane 0.3-0.4% Eye Drops] 1 drop BOTH EYES TID [History] Rosuvastatin Calcium 20 mg PO DAILY 06/16/16 [History] Albuterol Sulfate [Proair Hfa] 2 puff IH Q6H PRN 11/13/16 [History] Ipratropium/Albuterol Neb [Duoneb] 3 ml IH Q4HR PRN 11/13/16 [History] Metoprolol Succinate 100 mg PO BID 11/13/16 [History] Ropinirole HCl [Requip] 0.25 mg PO HS 11/13/16 [History] Allergies atorvastatin [From Lipitor] Allergy (Verified 06/16/16 13:54) Flushing bupropion Allergy (Verified 06/16/16 13:54) Blurry Vision diphenhydramine [From Benadryl] Allergy (Verified 06/16/16 13:54) Difficulty Breathing nifedipine Allergy (Verified 06/16/16 13:54) Hives protamine Allergy (Verified 06/16/16 13:54) Difficulty Breathing simvastatin Allergy (Verified 11/13/16 11:08) Flushing All Systems PM: A 10-system review of systems was performed and is negative for pertinent findings except as documented above in the HPI. - Constitutional Constitutional: no chills, no fever(s), no night sweats - EENT Eyes: no change in vision, no discharge, no pain, no photophobia Nose, mouth and throat: no dysphagia, no nasal discharge, no neck pain, no sore throat - Cardiovascular Cardiovascular ROS IM: chest pain, dyspnea on exertion, no diaphoresis, no dyspnea, no lightheadedness, no palpitations, no syncope - Respiratory Respiratory: cough, dyspnea on exertion, change in phlegm color - Gastrointestinal Gastrointestinal: no abdominal pain, no diarrhea, no hematemesis, no hematochezia, no melena, no nausea, no vomiting - Musculoskeletal Musculoskeletal ROS IM: no numbness, no tingling - Integumentary Integumentary IM: no rash, no unusual bruising - Neurological Neurological ROS: no confusion, no convulsions, no focal weakness, no numbness, no tingling, no tremor(s) - Constitutional Vitals: Temp Pulse Resp BP Pulse Ox 97.7 F 72 16 160/74 96 11/13/16 13:46 11/13/16 13:46 11/13/16 13:46 11/13/16 13:46 11/13/16 13:46 General appearance: Present: A&O X 3, answers questions appropriately - Head Head exam: Present: atraumatic, normocephalic - Eye Eye exam: Present: PERRL, conjuntiva pink, sclera anicteric Pupils: Present: PERRL - Neck Neck exam general surgery: Present: supple, trachea midline. Absent: lymphadenopathy - Respiratory Respiratory exam: Present: wheezes. Absent: accessory muscle use, rales, rhonchi - Cardiovascular Cardiovascular exam: Present: JVD, RRR, +S1, +S2. Absent: diastolic murmur, gallop, rubs, systolic murmur - GI/Abdominal GI/Abdominal exam: Present: normal bowel sounds, soft, no peritoneal signs. Absent: distended, tenderness - Extremities Exam Extremities exam: Present: warm, radial pulses palpable and symetrical. Absent : calf tenderness, cyanotic, pedal edema - Neurological Exam Neurological exam: Present: CN II-XII intact, oriented X3, no focal deficits. Absent: pronater drift, facial droop, speech deficit - Skin Skin exam: Present: dry, intact Internal Med - H&P Results - Labs CBC & Chem 7: 11/13/16 11:44 11/13/16 11:44 - EKG Data EKG shows normal: sinus rhythm - EKG Data Prior EKG available for review: yes When compared to previous EKG: there is no significant change - Diagnostic Studies Other Images Additional comments: Chest X-Ray 11/13/16 11:24 IMPRESSION: New symmetric bilateral diffuse pulmonary opacities and lung base consolidation with probable effusions. This may represent acute pulmonary edema with lung base atelectasis versus possible multifocal pneumonia. D/ / 11/13/2016 12:00:30 Oleg Francis MD / Lydia Edmondson Interpreting Provider: Oleg Francis MD
[2016-11-13] MEDS ORDERED: Albuterol 2.5 MG/3 ML NEBULIZER IH PRN (15:55)
[2016-11-13] MEDS: Insulin LISPRO 300 UNITS/3 ML VIAL SQ SCH (17:31)
[2016-11-13] MEDS: *HR* Heparin 5,000 UNIT/ML VIAL SQ SCH (17:31)
[2016-11-13] MEDS: Furosemide 40 MG/4 ML VIAL IVP SCH (17:31)
[2016-11-13] MEDS: Ipratropium/Albuterol Neb 3 ML IH SCH ×2 (20:15→21:58)
--- NOTE | 2016-11-13 20:29 | Electrocardiograph Report ---
[place] [id number] Test Date: 2016-11-13 Pat Name: Delgado Pereyra Department: 102 Room: 2A Gender: M Business Support Manager: David : 1945 Requested By: [place] Order Number: [id number] Reading MD: Tito Owusu MD Measurements Intervals Gomer Rate: 73 P: 63 GA: 149 QRS: -30 QRSD: 90 T: 28 QT: 404 QTc: 429 Interpretive Statements SINUS RHYTHM LEFT ATRIAL ENLARGEMENT Electronically Signed On 11-13-2016 20:27:22 EDT by Tito Owusu MD
[2016-11-13] MEDS: Artificial Tears SOLN 15 ML BOTTLE BOTH EYES SCH (20:30)
[2016-11-13] MEDS: Metoprolol XL (24 HR) Succ 50 MG TAB.ER.24H PO SCH (20:33)
[2016-11-13] MEDS ORDERED: rOPINIRole 0.25 MG TABLET PO SCH (21:00)
[2016-11-13] MEDS ORDERED: Insulin LISPRO 300 UNITS/3 ML VIAL SQ SCH (21:00)
[2016-11-14 01:02] LABS: Basophils % 0.5 %; Eosinophils # 0.2 K/mcL (0.0-0.6); Eosinophils % 3.6 %; Hematocrit 33.6 % (37.5-50.1); Hemoglobin 10.6 g/dL (12.9-16.9); Immature Granulocytes % 0.5 % (0-4); Lymphocytes # 1.7 K/mcL (0.6-4.6); Lymphocytes % 27.4 %; Mean Corpuscular HGB Conc 31.5 g/dL (31.6-35.5); Mean Corpuscular Hemoglobin 25.6 pg (28.0-33.3); Mean Corpuscular Volume 81.2 fL (83.0-100.0); Mean Platelet Volume 9.3 fL (9.4-12.4); Monocytes # 0.6 K/mcL (0.0-1.3); Neutrophils # 3.8 K/mcL (1.6-8.9); Platelet Count 286 K/mcL (140-400); Red Blood Count 4.14 M/mcL (4.19-5.50); Red Cell Distribution Width 15.4 % (11.5-14.5)
[2016-11-14 01:22] LABS: BUN/Creatinine Ratio 13 (6-26); Blood Urea Nitrogen 17 mg/dL (8-26); Calcium 9.1 mg/dL (8.6-10.8); Carbon Dioxide 25 mEq/L (19-29); Chloride 108 mEq/L (98-109); Chol/HDL Ratio 3.7 (0-4.9); Cholesterol 103 mg/dL (< 200); Glucose 76 mg/dL (70-99); HDL Cholesterol 28 mg/dL (40-59); LDL Cholesterol,Calculated 58 mg/dL (0-99); Osmolality,Calculated 294 (280-300); Potassium 3.5 mEq/L (3.5-4.5); Sodium 142 mEq/L (136-145); Triglycerides 83 mg/dL (< 150); eGFR For African Americans > 60 (> 60); eGFR For Non-African Americans 52 (> 60)
[2016-11-14] MEDS: Ipratropium/Albuterol Neb 3 ML IH SCH (04:29)
[2016-11-14] MEDS: *HR* Heparin 5,000 UNIT/ML VIAL SQ SCH (05:43)
[2016-11-14 07:52] VITALS: BP 157/72
[2016-11-14] MEDS: Artificial Tears SOLN 15 ML BOTTLE BOTH EYES SCH (08:29)
[2016-11-14] MEDS: Insulin LISPRO 300 UNITS/3 ML VIAL SQ SCH (08:29)
[2016-11-14] MEDS: Furosemide 40 MG/4 ML VIAL IVP SCH (08:30)
[2016-11-14] MEDS: Metoprolol XL (24 HR) Succ 50 MG TAB.ER.24H PO SCH (08:30)
[2016-11-14] MEDS ORDERED: Aspirin 325 MG TABLET PO SCH (09:00)
[2016-11-14] MEDS ORDERED: Loratadine 10 MG TABLET PO SCH (09:00)
[2016-11-14] MEDS ORDERED: Cholecalciferol (D-3) 1,000 UNIT TABLET PO SCH (09:00)
[2016-11-14] MEDS ORDERED: amLODIPine 5 MG TABLET PO SCH (09:00)
--- NOTE | 2016-11-14 10:38 | Discharge Summary ---
Date of Encounter: 11/14/16 Time of Encounter: 10:35 - Discharge Diagnosis (1) Pulmonary edema Priority: Primary Status: Acute Qualifiers: Chronicity: acute Qualified Code(s): J81.0 - Acute pulmonary edema (2) CHF (congestive heart failure) Priority: Primary Status: Acute Qualifiers: Congestive heart failure type: diastolic Congestive heart failure chronicity: acute on chronic Qualified Code(s): I50.33 - Acute on chronic diastolic (congestive) heart failure (3) Chest pain Priority: Primary Status: Acute Qualifiers: Chest pain type: unspecified Qualified Code(s): R07.9 - Chest pain, unspecified (4) CAD (coronary artery disease) Priority: Secondary Status: Chronic Qualifiers: Coronary Disease-Associated Artery/Lesion type: [place] artery [place] vs. transplanted heart: [place] heart Associated angina: without angina Qualified Code(s): I25.10 - Atherosclerotic heart disease of [place] coronary artery without angina pectoris (5) Diabetes mellitus Priority: Secondary Status: Chronic Qualifiers: Diabetes mellitus type: type 2 Diabetes mellitus complication status: with kidney complications Diabetes mellitus complication detail: with chronic kidney disease Diabetes mellitus nursing home insulin use: with terminal gauger use Chronic kidney disease stage: stage 3 (moderate) Qualified Code(s): E11.22 - Type 2 diabetes mellitus with diabetic chronic kidney disease; N18.3 - Chronic kidney disease, stage 3 (moderate); Z79.4 - FPC (current) use of insulin (6) Hypertension Priority: Secondary Status: Chronic Qualifiers: Hypertension type: essential hypertension Qualified Code(s): I10 - Essential (primary) hypertension (7) CKD (chronic kidney disease) stage 3, GFR 30-59 ml/min Priority: Secondary Status: Chronic - Discharge Medications Prescriptions: Furosemide [Lasix] 40 mg PO BID #20 tablet Home Medications: Amlodipine Besylate 10 mg PO DAILY 06/16/16 [History] Aspirin 325 mg PO DAILY 06/16/16 [History] Benzocaine/Menthol [Sore Throat Lozenges] 1 lozenge PO TID PRN 06/16/16 [History ] Cetirizine HCl [All Day Allergy] 10 mg PO DAILY 06/16/16 [History] Cholecalciferol (Vitamin D3) [Vitamin D3] 1,000 unit PO DAILY 06/16/16 [History] Dextrose [Glucose] 1 tab PO DAILY PRN 06/16/16 [History] Insulin Aspart Prot/Insuln Asp [Novolog Mix 70-30 Vial] 36 unit SQ BID 06/16/16 [History] Lisinopril 40 mg PO DAILY 06/16/16 [History] Metformin HCl 500 mg PO BID 06/16/16 [History] Mupirocin [Bactroban Oint] 1 appl TP TID 06/16/16 [History] Nitroglycerin [Nitrostat] 0.4 mg SL Q5M PRN 06/16/16 [History] Pantoprazole Sodium [Protonix] 20 mg PO DAILY 06/16/16 [History] Propylene Glycol/Peg 400/Pf [Systane 0.3-0.4% Eye Drops] 1 drop BOTH EYES TID [History] Rosuvastatin Calcium 20 mg PO DAILY 06/16/16 [History] Albuterol Sulfate [Proair Hfa] 2 puff IH Q6H PRN 11/13/16 [History] Ipratropium/Albuterol Neb [Duoneb] 3 ml IH Q4HR PRN 11/13/16 [History] Metoprolol Succinate 100 mg PO BID 11/13/16 [History] Ropinirole HCl [Requip] 0.25 mg PO HS 11/13/16 [History] Furosemide [Lasix] 40 mg PO BID #20 tablet 11/14/16 [Rx] Allergies/Adverse Reactions: Allergies atorvastatin [From Lipitor] Allergy (Verified 06/16/16 13:54) Flushing bupropion Allergy (Verified 06/16/16 13:54) Blurry Vision diphenhydramine [From Benadryl] Allergy (Verified 06/16/16 13:54) Difficulty Breathing nifedipine Allergy (Verified 06/16/16 13:54) Hives protamine Allergy (Verified 06/16/16 13:54) Difficulty Breathing simvastatin Allergy (Verified 11/13/16 11:08) Flushing Date of admission: 11/13/16 13:15 Primary care physician: PCP [facility] Discharging clinician: Sheridan Ruiz Anticipated date of discharge: 11/14/16 - Patient Status Disposition: Left Against Medical Advice Condition: Fair Functional capacity at discharge: independent ambulation - Discharge Instructions Follow Up With: [facility] [Primary Care Provider] - Additional Instructions: F/up with PCP in 1 week; present to ER for worsening chest pain, dyspnea, orthopnea, weight gain; Risks of leaving AMA including respiratory failure and have been explained , and patient insists on leaving today; - Diet and Activity Diet: diabetic diet, low fat, low cholesterol, low salt diet (fluid restriction to 1.2L/day) Hospital course: Mr. Pereyra is a 71 year old male with the above medical problems, admitted with cough and shortness of breath. Emergency room evaluation showed acute CHF with chest x-ray showing pulmonary edema, elevated BNP. Patient was responding well to IV diuretics along with fluid restriction and urine output monitoring. Serial troponins showed mild troponin leak, likely related to underlying CHF and demand ischemia. Telemetry monitoring remained uneventful. Recent echocardiogram in June 2016 showed moderate diastolic dysfunction with preserved ejection fraction. Patient is noncompliant with medications as an outpatient and does not like being admitted to hospitals. Although his shortness of breath is slightly improved today, he continues to have bibasal crackles and pedal edema, requiring supplemental oxygen and would benefit from another day of IV diuresis in the hospital. However, patient declined to stay further and chose to sign out AGAINST MEDICAL ADVICE, despite explaining the risks of leaving including respiratory failure and . He was willing to take oral medications at home and is being provided with prescription for oral Lasix. He also refused supplemental oxygen if needed, claiming that oxygen can cause dependence and he does not want to be dependent on oxygen for the rest of his life. - Time Spent with Patient Total time spent providing and/or coordinating discharge services: Greater than 30 minutes (45 min) - Constitutional Vitals: Temp Pulse Resp BP Pulse Ox 97.9 F 75 14 157/72 93 11/14/16 07:49 11/14/16 07:49 11/14/16 07:49 11/14/16 07:49 11/14/16 07:49 General appearance: Present: A&O X 3, answers questions appropriately - Respiratory Respiratory exam: Present: decreased breath sounds (at right base), rales ( bibasal crackles). Absent: accessory muscle use, rhonchi, wheezes - Extremities Exam Extremities exam: Present: full ROM, pedal edema, warm, radial pulses palpable and symetrical. Absent: calf tenderness, cyanotic
[2016-11-14] MEDS ORDERED: hydrALAZINE 25 MG TABLET PO SCH (12:00)
== END 2016-11-14 10:42 | disposition left against medical advice (07) ==
LOC: EMEROO 10:58 → 2ANU 10:58 → SUATTDRO 13:15 → 2ANU 13:57
PROVIDERS: ADMIT Nurse Practitioner Family; ATTEND Internal Medicine

== ENCOUNTER 2019-10-28 11:51 | Inpatient (IN) ==
[2019-10-28 13:30] LABS: Calcium 8.8 mg/dL (8.6-10.3)
[2019-10-28 13:49] LABS: Basophils % 0.5 %; Eosinophils # 0.2 K/mcL (0.0-0.6); Eosinophils % 2.4 %; Hematocrit 29.1 % (37.5-50.1); Hemoglobin 9.4 g/dL (12.9-16.9); Immature Granulocytes % 0.4 % (0-4); Lymphocytes # 1.1 K/mcL (0.6-4.6); Lymphocytes % 12.8 %; Mean Corpuscular HGB Conc 32.3 g/dL (31.6-35.5); Mean Corpuscular Hemoglobin 28.6 pg (28.0-33.3); Mean Corpuscular Volume 88.4 fL (83.0-100.0); Monocytes # 0.9 K/mcL (0.0-1.3); Monocytes % 10.4 %; Platelet Count 223 K/mcL (140-400); Red Blood Count 3.29 M/mcL (4.19-5.50); Segmented Neutrophils % 73.5 %; White Blood Count 8.2 K/mcL (4.3-11.1)
[2019-10-28] MEDS ORDERED: Naloxone 0.4 MG/ML INJ IVP PRN (17:31)
[2019-10-28] MEDS ORDERED: Ondansetron 4 MG/2 ML VIAL IVP PRN (17:31)
[2019-10-28] MEDS ORDERED: Dextrose Gel 15 GM/37.5 ML TUBE PO PRN ×2 (17:51)
[2019-10-28] MEDS ORDERED: D5% in Water 1,000 ML IVC PRN (17:51)
[2019-10-28] MEDS ORDERED: *HR* Dextrose 50 % in Water (Syg) 50 ML SYRINGE IVP PRN (17:51)
[2019-10-28] MEDS: *HR* Heparin 5,000 UNIT/ML VIAL SQ SCH (18:55)
[2019-10-28] MEDS: Ipratropium/Albuterol Neb 3 ML IH SCH ×2 (20:18→23:19)
[2019-10-28] MEDS ORDERED: Insulin DETEMIR 100 UNIT/ML X5UNITS SQ SCH (21:00)
[2019-10-28] MEDS: Insulin DETEMIR 100 UNIT/ML X5UNITS SQ SCH (21:39)
[2019-10-29 00:28] LABS: Bilirubin,Urine Negative (Negative); Blood,Urine Negative (Negative); Clarity,Urine Clear (Clear); Color,Urine Yellow (Yellow); Glucose,Urine (UA) 500 mg/dL (Normal); Ketones,Urine Negative (Negative); Leukocyte Esterase,Urine Negative (Negative); Nitrite,Urine Negative (Negative); Protein,Urine 100 mg/dL (Neg-Trace); Specific Gravity,Urine 1.019 (1.010-1.025); Urobilinogen,Urine Normal (Normal)
[2019-10-29 00:30] LABS: Bacteria,Urine None Seen per hpf (None-Few); Hyaline Casts,Urine None Seen per lpf (None-Few); Squamous Epithelial Cell,Urine Moderate per lpf (None-Few); WBC,Urine 0-3 per hpf (0-3)
[2019-10-29 00:33] LABS: Sodium, Urine 41.1 mEq/L
[2019-10-29] MEDS: Ipratropium/Albuterol Neb 3 ML IH SCH ×7 (03:29→23:26)
[2019-10-29 04:20] LABS: Basophils % 0.5 %; Eosinophils # 0.3 K/mcL (0.0-0.6); Eosinophils % 3.9 %; Hematocrit 31.9 % (37.5-50.1); Immature Granulocytes % 0.7 % (0-4); Lymphocytes # 0.9 K/mcL (0.6-4.6); Lymphocytes % 11.4 %; Mean Corpuscular HGB Conc 31.3 g/dL (31.6-35.5); Mean Corpuscular Hemoglobin 27.9 pg (28.0-33.3); Mean Corpuscular Volume 88.9 fL (83.0-100.0); Mean Platelet Volume 9.1 fL (9.4-12.4); Monocytes # 0.7 K/mcL (0.0-1.3); Neutrophils # 5.5 K/mcL (1.6-8.9); Platelet Count 239 K/mcL (140-400); Red Blood Count 3.59 M/mcL (4.19-5.50); Red Cell Distribution Width 16.6 % (11.5-14.5); Segmented Neutrophils % 74.5 %; White Blood Count 7.4 K/mcL (4.3-11.1)
[2019-10-29 04:41] LABS: % Iron Saturation 11 % (20-55); Calcium 9.2 mg/dL (8.6-10.3); Iron 29 mcg/dL (65-175); Transferrin 194 mg/dL (203-362)
[2019-10-29 04:59] LABS: Ferritin 203 ng/mL (20-250)
[2019-10-29 05:05] LABS: Folate 15.6 ng/mL (3.0-16.0)
[2019-10-29] MEDS: *HR* Heparin 5,000 UNIT/ML VIAL SQ SCH ×2 (06:24→17:23)
[2019-10-29] MEDS ORDERED: Nitroglycerin 0.4 MG TAB.SUBL SL PRN (10:01)
[2019-10-29] MEDS: Insulin LISPRO 300 UNITS/3 ML VIAL SQ SCH ×3 (10:07→17:23)
[2019-10-29] MEDS ORDERED: calcitrioL 0.25 MCG CAPSULE PO SCH (10:15)
[2019-10-29] MEDS: hydrALAZINE 10 MG TABLET PO SCH ×2 (15:20→20:08)
[2019-10-29] MEDS ORDERED: carvediloL 25 MG TABLET PO SCH (17:00)
[2019-10-29] MEDS ORDERED: Bumetanide 1 MG/4 ML VIAL IVP SCH (17:00)
[2019-10-29] MEDS ORDERED: Furosemide 40 MG TABLET PO SCH (17:00)
[2019-10-29] MEDS: Insulin DETEMIR 100 UNIT/ML X5UNITS SQ SCH (20:08)
[2019-10-29] MEDS ORDERED: NON-FORMULARY MEDICATION 1 EACH EACH (Tiotropium Bromide [Spiriva Respimat] 2 PUFF) IH SCH (21:00)
[2019-10-30 03:12] LABS: Hematocrit 32.2 % (37.5-50.1); Mean Corpuscular HGB Conc 31.1 g/dL (31.6-35.5); Mean Corpuscular Hemoglobin 27.8 pg (28.0-33.3); Mean Corpuscular Volume 89.4 fL (83.0-100.0); Mean Platelet Volume 9.2 fL (9.4-12.4); Platelet Count 245 K/mcL (140-400); Red Cell Distribution Width 16.3 % (11.5-14.5); White Blood Count 6.4 K/mcL (4.3-11.1)
[2019-10-30 03:27] LABS: Potassium 3.6 mEq/L (3.5-5.1)
[2019-10-30] MEDS: Ipratropium/Albuterol Neb 3 ML IH SCH ×2 (03:29→07:42)
[2019-10-30] MEDS: *HR* Heparin 5,000 UNIT/ML VIAL SQ SCH (05:25)
[2019-10-30 07:10] VITALS: BP 154/74
[2019-10-30] MEDS: Insulin LISPRO 300 UNITS/3 ML VIAL SQ SCH (07:45)
[2019-10-30] MEDS ORDERED: Ranolazine 500 MG TAB.ER.12H PO SCH (09:00)
[2019-10-30] MEDS ORDERED: amLODIPine 5 MG TABLET PO SCH (09:00)
[2019-10-30] MEDS ORDERED: Aspirin Enteric Coated 81 MG Tablet PO SCH (09:00)
[2019-10-30] MEDS ORDERED: Cholecalciferol (D-3) 1,000 UNIT (25MCG) TABLET PO SCH (09:00)
[2019-10-30] MEDS ORDERED: Loratadine 10 MG TABLET PO SCH (09:00)
[2019-10-30] MEDS ORDERED: Isosorbide MONOnitrate (24 HR) 30 MG TAB.ER.24H PO SCH (09:00)
== END 2019-10-30 09:26 | disposition left against medical advice (07) | DRG 189 ==
LOC: 3BNU 11:51 → EMEROOARM 11:51 → 3BNU 18:46
PROVIDERS: ADMIT Internal Medicine; ATTEND Student in an Organized Health Care Education/Training Program